=== PATIENT | male | born 1985 | race Caucasian/White ===

== ENCOUNTER 2021-04-09 11:06 | Day surgery (SDC) | payer BC ==
[~2021-04-09] VITALS: Ht 185.4 cm; Wt 91.3 kg
[~2021-04-09 11:06] MED LIST: ALBU90OI INH; IBUP200 PO; METAMUCIL POWD575 GM PO; MONT10T PO; PROBIOTIC1 EA13 PO; VITAMIN D325 MC3 PO; ZYRTEC10 M2 PO
== END 2021-04-09 12:49 | disposition home or self-care (01) ==
LOC: ORSCSDS 11:06
PROVIDERS: Internal Medicine Gastroenterology
PROC: 0DBE8ZX Excision of Large Intestine, Via Natural or Artificial Opening Endoscopic, Diagnostic (ICD-10-PCS; principal; 2021-04-09 12:30)
DX: R19.7 Diarrhea, unspecified (principal); K62.5 Hemorrhage of anus and rectum; K57.30 Diverticulosis of large intestine without perforation or abscess without bleeding; K64.1 Second degree hemorrhoids; K60.2 Anal fissure, unspecified; Z79.899 Other long term (current) drug therapy; J45.909 Unspecified asthma, uncomplicated; Z87.891 Personal history of nicotine dependence
CPT/HCPCS: 88305; J2704; J7120